=== PATIENT | male | born 1985 | race Caucasian/White ===

== ENCOUNTER 2021-06-27 20:23 | Emergency (ER) | payer BC ==
[~2021-06-27] VITALS: Ht 175.2 cm; Wt 72.6 kg
[2021-06-27] MEDS ORDERED: METHOCARBAMOL500 M1 PO (22:04)
[2021-06-27] MEDS ORDERED: NAPROXEN250 MG PO (22:04)
== END 2021-06-27 22:34 | disposition home or self-care (01) ==
LOC: ED 20:23
DX: M79.605 Pain in left leg (principal); M79.89 Other specified soft tissue disorders